=== PATIENT | male | born 1970 | race Caucasian/White ===

== ENCOUNTER 2020-08-17 20:26 | Inpatient (IN) | payer OTHER ==
[2020-08-17] MEDS ORDERED: ACETAMINOPHEN 1000 MG/100 ML VIAL (NON FORMULARY) IVPB ONE (21:25)
[2020-08-17] MEDS ORDERED: ACETAMINOPHEN INJECTION 100 ML IVPB ONE (21:56)
[2020-08-17 22:05] LABS: VENOUS BASE EXCESS -0.1 mmol/L (-2-2); VENOUS O2 SATURATION 36.8 % (70-80); VENOUS PCO2 46.2 mmHg (38-52); VENOUS PH 7.363 (7.310-7.410)
[2020-08-17 22:07] LABS: BASO % 0.2 % (0-2.0); EOS % 0.7 % (0-4.5); HEMATOCRIT 36.1 % (35.4-49); HEMOGLOBIN 12.2 GM/dL (11.7-16.9); MCH 29.5 pg (25.7-33.7); MCHC 33.8 g/dl (32.0-35.9); MEAN CELL VOLUME 87.4 fl (80-96); MEAN PLT VOLUME 6.6 fl (7.5-11.1); MONO % 14.4 % (3.8-10.2); NEUT % 72.7 % (42.8-82.8); PLATELET COUNT 499 K/MM3 (134-434); RBC 4.13 M/mm3 (4.00-5.60); RDW 12.4 % (11.9-15.9); WHITE BLOOD COUNT 7.1 K/mm3 (4.0-10.0)
[2020-08-17 22:14] LABS: INR 1.03 (0.83-1.09); PROTHROMBIN TIME (PATIENT) 12.6 SEC (9.7-13.0)
[2020-08-17 22:17] LABS: ACTIVATED PTT 31.3 SECONDS (25.2-36.5)
[2020-08-17 22:32] LABS: CHLORIDE 104 mmol/L (98-107); POTASSIUM 5.2 mmol/L (3.5-5.1); SODIUM 138 mmol/L (136-145)
[2020-08-17 22:34] LABS: ALBUMIN 2.9 g/dl (3.4-5.0); ANION GAP 7 MMOL/L (8-16); CALCIUM 8.5 mg/dL (8.5-10.1); CO2 28 mmol/L (21-32)
[2020-08-17 22:35] LABS: BLOOD UREA NITROGEN 14.3 mg/dL (7-18); GLUCOSE,RANDOM 119 mg/dL (74-106)
[2020-08-17 22:38] LABS: CREATININE 1.1 mg/dL (0.55-1.3); SGOT/AST 129 U/L (15-37); SGPT/ALT 130 U/L (13-61)
[2020-08-17 22:39] LABS: BILIRUBIN,TOTAL 0.8 mg/dL (0.2-1); LDH 541 U/L (87-246); TOT PROT 7.1 g/dl (6.4-8.2)
[2020-08-17 22:40] LABS: ALK PHOS 102 U/L (45-117)
[2020-08-17 23:07] LABS: ANISOCYTOSIS 0; MACROCYTOSIS 0; PLATELET ESTIMATE INCREASED
[2020-08-17] MEDS ORDERED: AZITHROMYCIN IVPB 500 MG in DEXTROSE 5%-WATER - 250 ML IVPB ONE (23:29)
[2020-08-17] MEDS ORDERED: CEFTRIAXONE 1,000 MG in DEXTROSE 5%-WATER - 50 ML IVPB ONE (23:29)
[2020-08-17] MEDS ORDERED: CEFTRIAXONE 1 GM/50 ML BAG ONE (23:34)
[2020-08-17] MEDS ORDERED: AZITHROMYCIN IVPB 500 MG/250 ML BAG IVPB ONE (23:35)
[2020-08-18 01:02] LABS: EPI CELLS 9 /uL (0-25.1); HYALINE CASTS 1 /uL (0-3.1); URINE APPEARANCE CLEAR; URINE BACTERIA 6 /uL (0-1359); URINE BILIRUBIN 1+ (NEGATIVE); URINE COLOR DK YELLOW; URINE GLUCOSE (UA) NEGATIVE (NEGATIVE); URINE KETONE TRACE (NEGATIVE); URINE LEUK ESTERASE NEGATIVE (NEGATIVE); URINE NITRITE NEGATIVE (NEGATIVE); URINE PROTEIN 1+ (NEGATIVE); URINE RBC 18 /uL (0-23.9); URINE WBC 3 /uL (0-25.8)
[2020-08-18] MEDS ORDERED: ACETAMINOPHEN 325 MG TABLET (FP) PO PRN (01:26)
[2020-08-18] MEDS ORDERED: DEXAMETHASONE SOD PHOSPHATE 4 MG/1 ML VIAL IVPB ONE (01:27)
[2020-08-18] MEDS ORDERED: DEXAMETHASONE SOD PHOSPHATE 10 MG/1 ML VIAL ONE ×2 (01:43→10:32)
[2020-08-18 05:42] LABS: BASO % 0.3 % (0-2.0); EOS % 0.1 % (0-4.5); HEMATOCRIT 35.9 % (35.4-49); HEMOGLOBIN 12.5 GM/dL (11.7-16.9); LYMPH % 8.7 % (8-40); MCH 30.2 pg (25.7-33.7); MEAN CELL VOLUME 86.5 fl (80-96); MEAN PLT VOLUME 6.6 fl (7.5-11.1); MONO % 6.7 % (3.8-10.2); NEUT % 84.2 % (42.8-82.8); PLATELET COUNT 483 K/MM3 (134-434); RBC 4.14 M/mm3 (4.00-5.60); RDW 12.6 % (11.9-15.9); WHITE BLOOD COUNT 6.8 K/mm3 (4.0-10.0)
[2020-08-18 06:04] LABS: POTASSIUM 4.8 mmol/L (3.5-5.1)
[2020-08-18 06:07] LABS: BLOOD UREA NITROGEN 12.6 mg/dL (7-18); CALCIUM 8.2 mg/dL (8.5-10.1)
[2020-08-18 06:12] LABS: BILIRUBIN,TOTAL 1.4 mg/dL (0.2-1); TOT PROT 7.3 g/dl (6.4-8.2)
[2020-08-18] MEDS ORDERED: CEFTRIAXONE 1 GM in DEXTROSE 5%-WATER - 50 ML IVPB SCH (10:00)
[2020-08-18] MEDS ORDERED: AZITHROMYCIN IVPB 250 MG in DEXTROSE 5%-WATER - 250 ML IVPB SCH (10:00)
[2020-08-18] MEDS ORDERED: ENOXAPARIN NA (PORCINE) 40 MG/0.4 ML DISP.SYRIN SQ SCH (10:00)
[2020-08-18] MEDS ORDERED: PT OWN MED DRAWER 7, Y5N ONE (10:30)
[2020-08-18] MEDS ORDERED: ASCORBIC ACID 500 MG TABLET (FP) ONE (10:32)
[2020-08-18] MEDS ORDERED: CEFTRIAXONE 1 GM/50 ML BAG ONE (10:32)
[2020-08-18] MEDS ORDERED: ENOXAPARIN NA (PORCINE) 40 MG/0.4 ML DISP.SYRIN SQ ONE (10:32)
[2020-08-18] MEDS ORDERED: ZINC SULFATE 220 MG CAPSULE (FP) ONE (10:32)
[2020-08-18] MEDS: DEXAMETHASONE SOD PHOSPHATE 4 MG/1 ML VIAL IVPB SCH (10:42)
[2020-08-18] MEDS: ASCORBIC ACID 500 MG TABLET (FP) PO SCH (10:42)
[2020-08-18] MEDS: CHOLECALCIFEROL (VIT D3) 400 UNIT (10 MCG) TABLET PO SCH (10:42)
[2020-08-18] MEDS: ZINC SULFATE 220 MG CAPSULE (FP) PO SCH (10:42)
[2020-08-18 12:54] LABS: ANISOCYTOSIS 0; MACROCYTOSIS 0; PLATELET ESTIMATE NORMAL
[2020-08-18] MEDS ORDERED: REMDESIVIR 200 MG in SODIUM CHLORIDE 210 ML IVPB ONE (15:00)
[2020-08-18] MEDS: ENOXAPARIN NA (PORCINE) 100 MG/1 ML DISP.SYRIN SQ SCH (22:38)
[2020-08-19 00:08] VITALS: BMI 30.1
[2020-08-19 08:49] LABS: HEMATOCRIT 34.8 % (35.4-49); HEMOGLOBIN 11.9 GM/dL (11.7-16.9); LYMPH % 9.6 % (8-40); MCH 29.8 pg (25.7-33.7); MCHC 34.2 g/dl (32.0-35.9); MONO % 12.3 % (3.8-10.2); NEUT % 77.1 % (42.8-82.8); PLATELET COUNT 601 K/MM3 (134-434); RDW 12.3 % (11.9-15.9); WHITE BLOOD COUNT 12.6 K/mm3 (4.0-10.0)
[2020-08-19 09:20] LABS: POTASSIUM 4.6 mmol/L (3.5-5.1)
[2020-08-19 10:43] LABS: ALBUMIN 2.8 g/dl (3.4-5.0); BLOOD UREA NITROGEN 22.9 mg/dL (7-18); MAGNESIUM 2.6 mg/dL (1.8-2.4)
[2020-08-19 10:47] LABS: BILIRUBIN,TOTAL 0.6 mg/dL (0.2-1); TOT PROT 6.8 g/dl (6.4-8.2)
[2020-08-19] MEDS: ENOXAPARIN NA (PORCINE) 100 MG/1 ML DISP.SYRIN SQ SCH ×2 (11:25→21:04)
[2020-08-19] MEDS: CHOLECALCIFEROL (VIT D3) 400 UNIT (10 MCG) TABLET PO SCH (11:25)
[2020-08-19] MEDS: ZINC SULFATE 220 MG CAPSULE (FP) PO SCH (11:25)
[2020-08-19] MEDS: ASCORBIC ACID 500 MG TABLET (FP) PO SCH (11:25)
[2020-08-19] MEDS: DEXAMETHASONE SOD PHOSPHATE 4 MG/1 ML VIAL IVPB SCH (11:25)
[2020-08-19] MEDS ORDERED: PT OWN MED DRAWER 7, Y5N ONE ×2 (14:16→14:48)
[2020-08-19] MEDS: REMDESIVIR 100 MG in SODIUM CHLORIDE 230 ML IVPB SCH (15:38)
[2020-08-20 09:07] LABS: BASO % 0.6 % (0-2.0); HEMATOCRIT 35.7 % (35.4-49); HEMOGLOBIN 11.9 GM/dL (11.7-16.9); LYMPH % 11.3 % (8-40); MCH 29.5 pg (25.7-33.7); MCHC 33.4 g/dl (32.0-35.9); MEAN CELL VOLUME 88.2 fl (80-96); MEAN PLT VOLUME 7.2 fl (7.5-11.1); MONO % 11.7 % (3.8-10.2); NEUT % 76.4 % (42.8-82.8); PLATELET COUNT 643 K/MM3 (134-434); RBC 4.04 M/mm3 (4.00-5.60); RDW 12.5 % (11.9-15.9); WHITE BLOOD COUNT 13.7 K/mm3 (4.0-10.0)
[2020-08-20 09:22] LABS: POTASSIUM 4.7 mmol/L (3.5-5.1)
[2020-08-20 09:26] LABS: ALBUMIN 2.8 g/dl (3.4-5.0); BLOOD UREA NITROGEN 24.7 mg/dL (7-18)
[2020-08-20 09:27] LABS: CALCIUM 8.2 mg/dL (8.5-10.1); MAGNESIUM 2.3 mg/dL (1.8-2.4)
[2020-08-20 09:31] LABS: BILIRUBIN,TOTAL 0.7 mg/dL (0.2-1); TOT PROT 6.6 g/dl (6.4-8.2)
[2020-08-20] MEDS ORDERED: PT OWN MED DRAWER 7, Y5N ONE ×2 (09:46→15:17)
[2020-08-20] MEDS: ZINC SULFATE 220 MG CAPSULE (FP) PO SCH (09:48)
[2020-08-20] MEDS: ASCORBIC ACID 500 MG TABLET (FP) PO SCH (09:48)
[2020-08-20] MEDS: CHOLECALCIFEROL (VIT D3) 400 UNIT (10 MCG) TABLET PO SCH (09:49)
[2020-08-20] MEDS: DEXAMETHASONE SOD PHOSPHATE 4 MG/1 ML VIAL IVPB SCH (09:49)
[2020-08-20] MEDS: ENOXAPARIN NA (PORCINE) 100 MG/1 ML DISP.SYRIN SQ SCH ×2 (09:50→21:09)
[2020-08-20 09:57] LABS: ANISOCYTOSIS 0; MACROCYTOSIS 0; PLATELET ESTIMATE INCREASED
[2020-08-20] MEDS: REMDESIVIR 100 MG in SODIUM CHLORIDE 230 ML IVPB SCH (15:19)
[2020-08-21 09:10] LABS: BASO % 0.2 % (0-2.0); EOS % 0.1 % (0-4.5); HEMATOCRIT 39.8 % (35.4-49); HEMOGLOBIN 13.2 GM/dL (11.7-16.9); MCH 29.1 pg (25.7-33.7); MCHC 33.1 g/dl (32.0-35.9); MEAN CELL VOLUME 87.9 fl (80-96); MEAN PLT VOLUME 7.1 fl (7.5-11.1); MONO % 12.5 % (3.8-10.2); NEUT % 72.2 % (42.8-82.8); PLATELET COUNT 804 K/MM3 (134-434); RBC 4.52 M/mm3 (4.00-5.60); RDW 12.4 % (11.9-15.9); WHITE BLOOD COUNT 12.5 K/mm3 (4.0-10.0)
[2020-08-21 09:25] LABS: POTASSIUM 4.3 mmol/L (3.5-5.1)
[2020-08-21 09:31] LABS: ALBUMIN 3.1 g/dl (3.4-5.0); BLOOD UREA NITROGEN 20.8 mg/dL (7-18); CALCIUM 8.8 mg/dL (8.5-10.1); MAGNESIUM 2.3 mg/dL (1.8-2.4)
[2020-08-21 09:35] LABS: BILIRUBIN,TOTAL 0.8 mg/dL (0.2-1); TOT PROT 7.3 g/dl (6.4-8.2)
[2020-08-21] MEDS: DEXAMETHASONE SOD PHOSPHATE 4 MG/1 ML VIAL IVPB SCH (10:08)
[2020-08-21] MEDS: CHOLECALCIFEROL (VIT D3) 400 UNIT (10 MCG) TABLET PO SCH (10:09)
[2020-08-21] MEDS: ENOXAPARIN NA (PORCINE) 100 MG/1 ML DISP.SYRIN SQ SCH ×2 (10:09→21:11)
[2020-08-21] MEDS: ZINC SULFATE 220 MG CAPSULE (FP) PO SCH (10:09)
[2020-08-21] MEDS: ASCORBIC ACID 500 MG TABLET (FP) PO SCH (10:09)
[2020-08-21 10:34] LABS: ANISOCYTOSIS 1+; MACROCYTOSIS 0; PLATELET ESTIMATE INCREASED
[2020-08-21] MEDS: REMDESIVIR 100 MG in SODIUM CHLORIDE 230 ML IVPB SCH (15:40)
[2020-08-22 08:44] LABS: BASO % 0.2 % (0-2.0); MONO % 11.2 % (3.8-10.2)
[2020-08-22 08:51] LABS: EOS % 0.3 % (0-4.5); HEMATOCRIT 38.3 % (35.4-49); HEMOGLOBIN 12.9 GM/dL (11.7-16.9); LYMPH % 17.5 % (8-40); MCH 29.7 pg (25.7-33.7); MCHC 33.7 g/dl (32.0-35.9); MEAN CELL VOLUME 88.2 fl (80-96); NEUT % 70.8 % (42.8-82.8); PLATELET COUNT 758 K/MM3 (134-434); RBC 4.35 M/mm3 (4.00-5.60); RDW 12.5 % (11.9-15.9); WHITE BLOOD COUNT 11.3 K/mm3 (4.0-10.0)
[2020-08-22 08:53] LABS: BILIRUBIN,TOTAL 0.6 mg/dL (0.2-1); CALCIUM 8.8 mg/dL (8.5-10.1); MAGNESIUM 2.7 mg/dL (1.8-2.4)
[2020-08-22 08:55] LABS: ALBUMIN 2.8 g/dl (3.4-5.0)
[2020-08-22 08:57] LABS: CREATININE 0.9 mg/dL (0.55-1.3)
[2020-08-22 08:58] LABS: TOT PROT 6.9 g/dl (6.4-8.2)
[2020-08-22] MEDS: ZINC SULFATE 220 MG CAPSULE (FP) PO SCH (09:43)
[2020-08-22] MEDS: DEXAMETHASONE SOD PHOSPHATE 4 MG/1 ML VIAL IVPB SCH (09:43)
[2020-08-22] MEDS: ASCORBIC ACID 500 MG TABLET (FP) PO SCH (09:44)
[2020-08-22] MEDS: CHOLECALCIFEROL (VIT D3) 400 UNIT (10 MCG) TABLET PO SCH (09:44)
[2020-08-22] MEDS: ENOXAPARIN NA (PORCINE) 100 MG/1 ML DISP.SYRIN SQ SCH ×2 (09:44→21:01)
[2020-08-22 10:27] LABS: ANISOCYTOSIS 0; MACROCYTOSIS 0; PLATELET ESTIMATE INCREASED
[2020-08-22] MEDS: REMDESIVIR 100 MG in SODIUM CHLORIDE 230 ML IVPB SCH (14:08)
[2020-08-23 07:32] LABS: BASO % 0.2 % (0-2.0); EOS % 1.1 % (0-4.5); HEMOGLOBIN 12.3 GM/dL (11.7-16.9); LYMPH % 21.7 % (8-40); MCH 28.9 pg (25.7-33.7); MCHC 32.5 g/dl (32.0-35.9); MEAN CELL VOLUME 89.1 fl (80-96); MONO % 13.3 % (3.8-10.2); NEUT % 63.7 % (42.8-82.8); PLATELET COUNT 739 K/MM3 (134-434); RBC 4.27 M/mm3 (4.00-5.60); RDW 12.7 % (11.9-15.9); WHITE BLOOD COUNT 11.5 K/mm3 (4.0-10.0)
[2020-08-23 07:59] LABS: POTASSIUM 5.1 mmol/L (3.5-5.1)
[2020-08-23 08:47] LABS: CALCIUM 8.6 mg/dL (8.5-10.1)
[2020-08-23 08:48] LABS: ALBUMIN 2.7 g/dl (3.4-5.0); BLOOD UREA NITROGEN 19.5 mg/dL (7-18); MAGNESIUM 2.4 mg/dL (1.8-2.4)
[2020-08-23 08:52] LABS: BILIRUBIN,TOTAL 0.8 mg/dL (0.2-1); TOT PROT 6.6 g/dl (6.4-8.2)
[2020-08-23] MEDS: CHOLECALCIFEROL (VIT D3) 400 UNIT (10 MCG) TABLET PO SCH (10:30)
[2020-08-23] MEDS: ASCORBIC ACID 500 MG TABLET (FP) PO SCH (10:30)
[2020-08-23] MEDS: ZINC SULFATE 220 MG CAPSULE (FP) PO SCH (10:30)
[2020-08-23] MEDS: ENOXAPARIN NA (PORCINE) 100 MG/1 ML DISP.SYRIN SQ SCH ×2 (10:30→21:57)
[2020-08-23] MEDS: DEXAMETHASONE 4 MG TABLET (FP) PO SCH (10:30)
[2020-08-23 11:51] LABS: ANISOCYTOSIS 0; MACROCYTOSIS 0; PLATELET ESTIMATE INCREASED
[2020-08-24 07:31] LABS: BASO % 0.5 % (0-2.0); EOS % 0.3 % (0-4.5); HEMATOCRIT 38.7 % (35.4-49); LYMPH % 13.6 % (8-40); MCH 29.8 pg (25.7-33.7); MCHC 33.4 g/dl (32.0-35.9); MEAN CELL VOLUME 89.1 fl (80-96); MEAN PLT VOLUME 7.1 fl (7.5-11.1); MONO % 9.4 % (3.8-10.2); NEUT % 76.2 % (42.8-82.8); PLATELET COUNT 850 K/MM3 (134-434); RBC 4.35 M/mm3 (4.00-5.60); RDW 12.8 % (11.9-15.9); WHITE BLOOD COUNT 13.7 K/mm3 (4.0-10.0)
[2020-08-24 07:49] LABS: POTASSIUM 4.8 mmol/L (3.5-5.1)
[2020-08-24 07:52] LABS: BLOOD UREA NITROGEN 19.7 mg/dL (7-18); CALCIUM 8.8 mg/dL (8.5-10.1); MAGNESIUM 2.6 mg/dL (1.8-2.4)
[2020-08-24 07:57] LABS: BILIRUBIN,TOTAL 0.9 mg/dL (0.2-1)
[2020-08-24 09:35] VITALS: TEMP 97.8
[2020-08-24] MEDS: DEXAMETHASONE 4 MG TABLET (FP) PO SCH (10:29)
[2020-08-24] MEDS: CHOLECALCIFEROL (VIT D3) 400 UNIT (10 MCG) TABLET PO SCH (10:30)
[2020-08-24] MEDS: ENOXAPARIN NA (PORCINE) 100 MG/1 ML DISP.SYRIN SQ SCH (10:30)
[2020-08-24] MEDS: ZINC SULFATE 220 MG CAPSULE (FP) PO SCH (10:30)
[2020-08-24] MEDS: ASCORBIC ACID 500 MG TABLET (FP) PO SCH (10:31)
[2020-08-24 14:17] VITALS: BP 121/78; PULSE 82
== END 2020-08-24 19:42 | disposition home or self-care (01) | DRG 137 ==
LOC: JER 20:26 → JERBED 23:11 → J8W 08-18 21:44
PROVIDERS: ADMIT Internal Medicine; ATTEND Nurse Practitioner Family
PROC: XW033E5 Introduction of Remdesivir Anti-infective into Peripheral Vein, Percutaneous Approach, New Technology Group 5 (ICD-10-PCS; principal; 2020-08-18)
DX: U07.1 COVID-19 (principal); R74.01 Elevation of levels of liver transaminase levels; E66.9 Obesity, unspecified; I10 Essential (primary) hypertension; J96.01 Acute respiratory failure with hypoxia; J12.82 Pneumonia due to coronavirus disease 2019; Z68.30 Body mass index [BMI] 30.0-30.9, adult
CPT/HCPCS: 36415; 71045-TC-FY; 80053; 81003; 82550; 82553; 82728; 82803; 83605; 83615; 83735; 84484; 85025; 85379; 85610; 85730; 86140; 86769; 87040; 87086; 87804; 93005; 93010; 94761; 99285-25; C9399; C9803; J0131; U0003; U0005